=== PATIENT | male | born 1950 | race Caucasian/White ===

== ENCOUNTER → 2018-01-22 11:15 | Outpatient (CLI) | payer MEDICARE, MEDICAID, SELFPAY ==
[2018-01-22 11:43] LABS: Basophils # 0.1 K/mm3 (0-0.2); Basophils % 0.9 % (0.1-2.0); Eosinophils # 0.2 K/mm3 (0.0-0.4); Eosinophils % 4.1 % (0.1-12.0); Hematocrit 49.8 % (42.0-52.0); Hemoglobin 16.4 g/dL (14.1-18.0); Lymphocytes # 2.3 K/mm3 (0.7-4.5); Lymphocytes % 38.5 K/mm3 (10-50); Mean Corpuscular Hemoglobin 31.5 pg (27.0-31.2); Mean Corpuscular Volume 95.4 fl (80-94); Mean Platelet Volume 6.9 fl (7.4-10.4); Monocytes # 0.5 K/mm3 (0.1-1.0); Monocytes % 8.5 % (1.7-9.3); Neutrophils # 2.8 K/mm3 (1.8-7.8); Platelet Count 304 K/mm3 (142-424); Red Blood Count 5.22 M/mm3 (4.60-6.20); Red Cell Distribution Width 14.3 % (11.5-17.5); White Blood Count 5.9 K/mm3 (4.8-10.8)
[2018-01-24 22:08] LABS: Blastomyces Antibody Negative (Neg:<1:1)
[2018-01-25 18:36] LABS: Histoplasma Antibody Quant Negative (Neg:<1:1)
== END ==
PROVIDERS: Visit Provider Internal Medicine
DX: R61 Generalized hyperhidrosis (principal); R06.02 Shortness of breath
CPT/HCPCS: 36415; 85025; 86480; 86612; 86698

== ENCOUNTER → 2018-02-26 09:46 | Outpatient (CLI) | payer MEDICARE, MEDICAID, SELFPAY | PROVIDERS: Visit Provider Internal Medicine | DX: R76.12 Nonspecific reaction to cell mediated immunity measurement of gamma interferon antigen response without active tuberculosis (principal) | CPT/HCPCS: 87116; 87206 ==

== ENCOUNTER → 2018-02-27 16:00 | Outpatient (CLI) | payer MEDICARE, MEDICAID, SELFPAY | PROVIDERS: Visit Provider Internal Medicine | DX: R76.12 Nonspecific reaction to cell mediated immunity measurement of gamma interferon antigen response without active tuberculosis (principal) | CPT/HCPCS: 87116; 87206 ==

== ENCOUNTER → 2018-02-28 14:23 | Outpatient (CLI) | payer MEDICARE, MEDICAID, SELFPAY | PROVIDERS: Visit Provider Internal Medicine | DX: R76.12 Nonspecific reaction to cell mediated immunity measurement of gamma interferon antigen response without active tuberculosis (principal) | CPT/HCPCS: 87116; 87206 ==

== ENCOUNTER → 2019-07-23 10:01 | Outpatient (CLI) | payer MEDICARE, MEDICAID, SELFPAY ==
[2019-07-23 10:33] LABS: Basophils # 0.1 K/mm3 (0-0.2); Basophils % 0.8 % (0.1-2.0); Eosinophils # 0.3 K/mm3 (0.0-0.4); Eosinophils % 4.5 % (0.1-12.0); Hemoglobin 15.9 g/dL (14.1-18.0); Lymphocytes # 2.6 K/mm3 (0.7-4.5); Lymphocytes % 36.8 % (10-50); Mean Corpuscular HGB Conc 31.2 g/dL (31.8-35.4); Mean Corpuscular Hemoglobin 31.2 pg (27.0-31.2); Mean Corpuscular Volume 100.2 fl (80-94); Mean Platelet Volume 7.5 fl (7.4-10.4); Monocytes # 0.7 K/mm3 (0.1-1.0); Neutrophils # 3.4 K/mm3 (1.8-7.8); Neutrophils % 47.9 % (37.0-80.0); Platelet Count 262 K/mm3 (142-424); Red Blood Count 5.09 M/mm3 (4.60-6.20); Red Cell Distribution Width 15.2 % (11.5-17.5)
[2019-07-23 11:40] LABS: Alanine Aminotransferase 17 U/L (12-78); Albumin Level 3.8 gm/dL (3.4-5.0); Alkaline Phosphatase 69 U/L (46-116); Anion Gap 11.9 mEq/L (5-15); Aspartate Amino Transferase 9 U/L (15-37); Bilirubin,Direct 0.2 mg/dL (0.0-0.2); Bilirubin,Total 1.2 mg/dL (0.2-1.0); Blood Urea Nitrogen 11 mg/dL (7-18); Calcium 9.1 mg/dL (8.5-10.1); Carbon Dioxide 29 mmol/L (21.0-32.0); Chloride 99 mmol/L (98-107); Creatinine,Serum 0.93 mg/dL (0.70-1.30); Estimated Glomerular Filt Rate 81 ml/min (>60); GFR (African American) 98 ML/MIN (>60); Globulin 3.8 gm/dl (1.3-3.2); Glucose 101 mg/dL (74-106); Potassium 3.9 mmoL/L (3.5-5.1); Prostate Specific Ag Screen 0.5 ng/mL (0.0-4.0); Sodium 136 mmol/L (136-145); Total Protein,Serum 7.6 gm/dL (6.4-8.2)
[2019-07-23 12:22] LABS: Hemoglobin A1C 6.2 % (0.0-7.0)
== END ==
PROVIDERS: Visit Provider Family Medicine
DX: E78.49 Other hyperlipidemia (principal); Z79.891 Long term (current) use of opiate analgesic; Z12.5 Encounter for screening for malignant neoplasm of prostate
CPT/HCPCS: 36415; 80053; 80076; 83036; 85025; G0103

== ENCOUNTER → 2020-07-01 11:09 | Outpatient (CLI) | payer MEDICARE, MEDICAID, SELFPAY ==
--- NOTE | 2020-07-01 11:13 | CT_ITS ---
PROCEDURE: CT LUNG SCREENING CLINICAL INDICATION: HX OF TOBACCO USE CURRENT SMOKER 80 pack year smoking history COPD, EMPHYSEMA, CAD, CHF NO PRIOR COMPARISON: No exams were available for comparison TECHNIQUE: The exam was performed on a GE Light Speed [address] scanner using 2.90 mGy CTDI. A low dose helical CT CHEST was performed on a multi-detector scanner. All CT scans at the facility use one or more dose reduction, viz: automated exposure control, ma/kV adjustment per patient size (including targeted exams where dose is matched to indication, i.e. head), or iterative reconstruction technique. The LDCT was performed in a facility that meets the criteria for the screening program. Data regarding this exam was submitted to ACR which is an approved registry. The order for this exam indicates that it came as a result of a lung cancer screening counseling shard decision-making visit that included all the elements required of such a visit including smoking cessation. The radiologist interpreting this exam meets the CMS criteria for the LDCT lung cancer screening program. The exam is reported using the Lung-RADS classification scale and reported to the ACR registry. NOTE: This study was performed for the specific purposes of lung cancer screening and is not an alternative to diagnostic chest CT. RADIATION DOSE: CTDI vol(CT dose Index-volume) = 2.90mG DLP (Dose Length Product) = 113.59 mGcm FINDINGS: Coronary artery calcifications. Prior CABG. Mild nodularity of the adrenal gland on the left possibly adenomatous in nature. COPD with centrilobular emphysema and scattered areas of scarring. There is a ground-glass opacity in the right upper lobe at 12 mm. Reticular nodular pattern is present with evidence of old granulomatous disease. 4 mm nodule left upper lobe laterally image 33. 7 mm nodule lingula image 47. 4 mm nodule right upper lobe image 33 IMPRESSION: Lung-RADS Category 3 Probably Benign several pulmonary nodules are present including a 7 mm noncalcified nodule in the lingula. Six-month follow-up is suggested Follow-up: [address] chest without and with contrast Dictated by: Joseph Roche MD 07/10/2020 11:10 Joseph Roche MD in [place] 07/10/2020 11:10
== END ==
PROVIDERS: PCP Family Medicine; Visit Provider Internal Medicine Pulmonary Disease
DX: Z87.891 Personal history of nicotine dependence (principal)

== ENCOUNTER → 2020-11-26 11:35 | Outpatient (CLI) | payer MEDICARE, MEDICAID, SELFPAY ==
[2020-11-26 12:40] LABS: Alanine Aminotransferase 19 U/L (12-78); Albumin Level 4.5 g/dl (3.5-5.0); Albumin/Globulin Ratio 1.4 (1.1-1.8); Alkaline Phosphatase 74 U/L (38-126); Anion Gap 13.2 mEq/L (5-15); Aspartate Amino Transferase 23 U/L (17-59); Bilirubin,Total 1.5 mg/dl (0.2-1.3); Blood Urea Nitrogen 14 mg/dl (9-20); Calcium 9.9 mg/dl (8.4-10.2); Carbon Dioxide 31 mmol/L (22.0-30.0); Chloride 98 mmol/L (98-107); Chol/HDL Ratio 2.5 (1-3.5); Cholesterol 134 mg/dl (140-200); Estimated Glomerular Filt Rate 66 ml/min (>60); GFR (African American) 80 ML/MIN (>60); Globulin 3.2 g/dL (1.3-3.2); Glucose 114 mg/dl (74-100); HDL Cholesterol 54 mg/dl (40-60); Potassium 4.2 mmoL/L (3.5-5.1); Sodium 138 mmol/L (136-145); Total Protein,Serum 7.7 g/dl (6.3-8.2); Triglycerides 118 mg/dl (30-150); VLDL Cholesterol 24 mg/dL (0-40)
== END ==
PROVIDERS: Visit Provider Family Medicine
DX: E78.5 Hyperlipidemia, unspecified (principal); Z79.899 Other long term (current) drug therapy
CPT/HCPCS: 36415; 80053; 80061

== ENCOUNTER → 2020-12-19 14:51 | Outpatient (CLI) | payer MEDICARE, MEDICAID, SELFPAY ==
[2020-12-19 17:06] LABS: Alanine Aminotransferase 19 U/L (12-78); Albumin Level 4.3 g/dl (3.5-5.0); Alkaline Phosphatase 95 U/L (38-126); Aspartate Amino Transferase 23 U/L (17-59); Bilirubin,Direct 0.1 mg/dl (0.0-0.4); Bilirubin,Indirect 0.7 mg/dL (0.0-0.9); Bilirubin,Total 0.8 mg/dl (0.2-1.3); Bilirubin,Unconjugated 0.7 mg/dL (0.0-1.1); Total Protein,Serum 7.6 g/dl (6.3-8.2)
== END ==
PROVIDERS: Visit Provider Family Medicine
DX: R94.5 Abnormal results of liver function studies (principal)
CPT/HCPCS: 36415; 80076

== ENCOUNTER 2021-10-27 10:40 | Emergency (ER) | payer MEDICARE, MEDICAID, SELFPAY ==
[2021-10-27 11:40] VITALS: BP 120/82; PULSE 86; RESP 18; TEMP 36.8; O2SAT 94; BMI 34.8
--- NOTE | 2021-10-27 11:59 | HMH.EDUTC ---
[facility] Disposition Clinical Impression: Exposure to COVID-19 virus Disposition: Home, Self-Care Condition on Discharge: Good Instructions: DI for COVID-19 (Suspected or Confirmed ), Preventing the Spread of Coronavirus Discharge Instructions Additional Instructions: Drink plenty of fluids. Take tylenol or ibuprofen for pain or fever. Follow up with your regular doctor. GO TO THE ER FOR ANY WORSENING SYMPTOMS Quarantine until you know the results of your covid-19 test. If it is positive, the health department should call you and give you further instructions about your length of Quarantine and other things. Notify your school or workplace of your results and follow their instructions regarding return to work/school. Referrals: Tessa Flores [Primary Care Provider] - Time of Disposition: 12:11 Medical Decision Making - Medical Records Medical records reviewed: No: I reviewed the patient's medical records. - Matias Inquiry Pt receiving controlled substance: No Vital Signs: 10/27/21 11:40 10/27/21 12:17 Temperature 98.2 F 98.2 F Temperature Source Oral Pulse Rate 86 Pulse Rate [Right Brachial] 86 Respiratory Rate 18 18 Blood Pressure 120/82 Blood Pressure [Right Arm] 120/82 Blood Pressure Mean [Right Arm] 94 Blood Pressure Source [Right Arm] Automatic Cuff Blood Pressure Position [Right Arm] Sitting 02 Sat by Pulse Oximetry 94 L Oxygen Delivery Method Room Air [facility] HPI - General Stated complaint: soa, weakness Time Seen by Provider: 10/27/21 11:59 - History of Present Illness Provider Complaint: He states that he was exposed to covid-19 on 10/21. He has been fully vaccinated but he has a history of copd, so he wants to be tested for covid-19. He denies any symptoms at this time to me. He states that he is always a little short of breath with his history of copd, but he is no more short of breath or coughing more that his normal. - Related Data Home Medications Medication Instructions Recorded Confirmed albuterol sulfate 90 mcg/actuation INHALATION 17 Days #18 04/07/18 aerosol inhaler aspirin 81 mg tablet,delayed 81 mg PO ONCE 04/07/18 release atorvastatin 40 mg tablet PO 30 Days #30 04/07/18 budesonide-formoterol HFA 160 INHALATION 30 Days #102 06/11/18 mcg-4.5 mcg/actuation aerosol inhaler hydrocodone 7.5 mg-acetaminophen PO 30 Days #90 04/07/18 325 mg tablet isosorbide mononitrate 120 mg PO 30 Days #30 04/07/18 tablet,extended release 24 hr lisinopril 20 mg tablet PO 30 Days #60 04/07/18 metoprolol tartrate 50 mg tablet PO 30 Days #60 04/07/18 montelukast 10 mg tablet PO 30 Days #30 04/07/18 tiotropium bromide 18 mcg capsule INHALATION 30 Days #30 04/07/18 with inhalation device Previous Rx's Medication Instructions Recorded Diclofenac Sodium [Diclofenac Sod 4 gram TP QID PRN #100 gm 09/19/18 100gm Topical Gel] Allergies Allergy/AdvReac Type Severity Reaction Status Date / Time lidocaine Allergy Verified 10/27/21 12:02 procaine Allergy Verified 10/27/21 12:02 [facility] History - Hepatitis A Screen Attestation statement:: This patient has been screened for Hepatitis A risk factors. I have reviewed the patient's past medical history: Yes Medical History: Reports:: Anxiety, Chronic Obstructive Pulmonary Disease (COPD), Depression, Gastroesophageal Reflux Disease(GERD), Home Oxygen, Hyperlipidemia, Hypertension, Tuberculosis Other Surgeries: Yes: CABG, Other Comment: mass-throat, hemmorrhoid, carotid artery, leg-post trauma - Social History Smoking Status: Current every day smoker Tobacco Type: cigarettes Alcohol Intake: never Alcohol Intake Frequency:: other Substance Use Type: denies use Occupational Status: retired - Psychiatric History Pschychiatric History:: Reports:: Anxiety, Depression Family Hx:: Heart Attack ROS Obtained: Yes All systems reviewed & no additional complaints - Constitutional Co
[2021-10-27 12:17] VITALS: BP 120/82; PULSE 86; RESP 18; TEMP 36.8; O2SAT 94
== END 2021-10-27 12:23 | disposition home or self-care (01) ==
PROVIDERS: Emergency Provider Nurse Practitioner Family; PCP Family Medicine
DX: Z20.822 Contact with and (suspected) exposure to COVID-19 (principal); R06.02 Shortness of breath; J44.9 Chronic obstructive pulmonary disease, unspecified; K21.9 Gastro-esophageal reflux disease without esophagitis; E78.5 Hyperlipidemia, unspecified; I10 Essential (primary) hypertension; F17.210 Nicotine dependence, cigarettes, uncomplicated; Z79.899 Other long term (current) drug therapy
CPT/HCPCS: G0463; 99202; C9803; U0003; U0005

== ENCOUNTER 2025-09-10 07:37 | Outpatient (CLI) | payer MEDICARE, MEDICAID, SELFPAY ==
--- OUTSIDE RECORDS SUMMARY | 2025-09-10 07:38 | XMS_ITS | CCD ---
Author Organization Unknown Care Team Providers Care Merchandising Professor Name Role Phone Unavailable Primary Care Provider Unavailabl e Unavailable Chronic Care Management Unavaila ble Summary Purpose DataExchange Insurance Providers Payer name Policy type / Coverage type Covered alliance party ID Effective Begin Date Effective End Date [facility] [id number] Unknown Unknown Family History Family History data not found Medication Administered No Medication Administered data Reason For Visit No Reason For Visit data Medical Equipment No Medical Equipment data Advance Directives No Advance Directive data
--- OUTSIDE RECORDS SUMMARY | 2025-09-10 07:39 | XMS_ITS | Clinical Summary ---
[facility] Organization [facility] Address [address] [place] [address] Care Team Providers Care Principal Hardware Architect Name Role Phone Tessa Flores MD Primary Care Provider Medications albuterol sulfate HFA 108 (90 Base) MCG/ACT inhaler Inhale 2 puffs Every 4 (Four) Hours As Needed. Inhale 2 puffs by mouth every 4 to 6 hours as needed 10/23/2024 Active atorvastatin (LIPITOR) 40 MG tablet Take 1 tablet by mouth Daily. Active busPIRone (BUSPAR) 10 MG tablet Take 1 tablet by mouth Every 12 (Twelve) Hours. 10/12/2024 Active citalopram (CeleXA) 20 MG tablet Take 1 tablet by mouth Daily. 10/12/2024 Active cyclobenzaprine (FLEXERIL) 10 MG tablet Take 1 tablet by mouth. 04/27/2014 Active Trelegy Ellipta 100-62.5-25 MCG/ACT inhaler Inhale 1 puff Daily. 10/12/2024 Active isosorbide mononitrate (IMDUR) 120 MG 24 hr tablet Take 1 tablet by mouth Daily. Active lisinopril (PRINIVIL,ZESTRI L) 20 MG tablet Take 1 tablet by mouth 2 (Two) Times a Day. Active methocarbamol (ROBAXIN) 500 MG tablet Take 1 tablet by mouth Every 12 (Twelve) Hours. 10/19/2024 Active metoprolol tartrate (LOPRESSOR) 50 MG tablet Take 1 tablet by mouth 2 (Two) Times a Day. Active nitroglycerin (Nitrostat) 0.[address] under the tongue Every 5 (Five) Minutes As Needed. 06/24/2014 Active omeprazole (priLOSEC) 20 MG capsule Take 1 capsule by mouth Daily. 10/12/2024 Active tiotropium (Spiriva HandiHaler) 18 MCG per inhalation capsule Place 1 capsule into inhaler and inhale. 11/24/2013 Active Social History Tobacco Use Types Packs/Day Years Used Date Smoking Tobacco: Never Assessed Abuse Screen Answer Date Recorded Unsafe at Home or Work/School Not on file Feels Threatened by Someone? Not on file 06/2023 Does Anyone Keep You from Co ntacting Others or Doint Things Outside the Home? Not on file 08/05/2023 Physical Sign of Abuse Present Not on file 1 Housing Stability Answer Date Recorded Current Living Arrangements Not on file 06/2023 Potentially Unsafe Housing Conditions Not on spencer e 08/05/2023 Family and Community Support Answer Jovanni e Recorded Help with Day-to-Day Activities Not on file 08/05/2023 Lonely or Isolated Not on file 08/05/2023 Employment Answer Date Recorded Do you want help finding or keeping work or a franky b? Not on file 08/05/2023 Disabilities Answer Date Recorded Concentrating, Remembering, or Making Decisions Difficulty Not on file 08/05/2023 Doing Errands Independently Difficulty Not on fi le 08/05/2023 Education Answer Date Recorded Help with school or training? Not on file Preferred Language Not on file 08/05/2023 Sex and Gender Information Value Date Recorded Sex Assigned at Not on file Legal Sex Male 12:48 PM EDT Gender Identity Not on file Sexual Orientation Not on file Last Filed Vital Signs Vital Sign Reading Time Taken Comments Blood Pressure 151/97 07/02/2014 11:13 AM EDT Pulse 84 07/02/2014 11:10 AM EDT Temperature 36.7 C (98 F) 07/02/2014 11:10 AM EDT Respiratory Rate - - Oxygen Saturation 94% 07/02/2014 11:10 AM EDT Inhaled Oxygen Concentration - - Weight 109 kg (241 lb 0.1 oz) 07/02/2014 11:10 A M EDT Height 185.4 cm (6' 1 ) 07/02/2014 11:19 AM EDT Body Mass Index 31.8 07/02/2014 11:10 AM EDT Plan of Treatment Health Maintenance Due Date Last Done Comments COLOGUARD 1996 COLON CANCER SCREENING 5 YEAR SIGMOIDOSCOPY 1996 COLONOSCOPY 1996 [address] CANCER SCREENING 1996 CT COLONOGRAPHY 1996 FECAL OCCULT BLOOD TEST 1996 FIT Testing (1 year) 1996 Pneumococcal Vaccine 50+ (1 of 1 - PCV) 2001 ZOSTER VACCINE (1 of 2) 2001 AAA SCREEN ONCE 2016 ANNUAL PHYSICAL 02/18/2018 HEPATITIS C SCREENING 02/18/2018 INFLUENZA VACCINE 05/28/2025 COVID-19 Vaccine ( - season) 2025 TDAP/TD VACCINES (2 - Td or Tdap) 04/05/[address] [place] [address] MEDICARE ADVANTAGE [place]ICAID [place] Care Teams Principal Hardware Architect Relationship Specialty Start Date End Date Tessa Flores MD [address] [address] PCP - General Family Medicine 08/05/24
--- OUTSIDE RECORDS SUMMARY | 2025-09-10 07:39 | XMS_ITS | Clinical Summary ---
Author Organization Healthcare Address [address] [place] [address] Care Team Providers Care Safety Deposit Boxes Custodian Name Role Phone Tessa Flores MD Primary Care Provider [phone] Immunizations Immunization Administration Dates Next Due Tdap 04/05/2017 Social History Tobacco Use Types Packs/Day Years Used Date Smoking Tobacco: Every Day Alcohol Use Standard Drinks/Week Comments Yes 0 (1 standard drink = 0.6 oz pur e alcohol) Sex and Gender Information Value Date Recorded Sex Assigned at Not on file Legal Sex Male 6:28 PM EDT Gender Identity Not on file Sexual Orientation Not on file Last Filed Vital Signs Vital Sign Reading Time Taken Comments Blood Pressure - - Pulse - - Temperature - - Respiratory Rate - - Oxygen Saturation - - Inhaled Oxygen Concentration - - Weight 110 kg (242 lb) 08/05/2017 8:08 AM EDT Height 185.4 cm (6' 1 ) 08/05/2017 8:08 AM EDT Body Mass Index 31.93 08/05/2017 8:08 AM EDT Plan of Treatment Not on file Care Teams Safety Deposit Boxes Custodian Relationship Specialty Start Date End Date Tessa Flores MD [address] [facility] [address] [place] [address] PCP - General 03/10/21
[2025-09-10] MEDS: ALBUTEROL 0.083% 2.5 MG/3 ML NEB IH (08:47)
--- NOTE | 2025-09-10 09:30 | CT_ITS ---
FINAL REPORT CLINICAL HISTORY: lung cancer screening, smokes 1 pack per day x 50 yrs, COPD, emphysema, CAD, CHF. Exposed to asbestosis COMPARISON: 07/01/2020 FINDINGS: CT CHEST LOW DOSE SCREENING HISTORY: Screening exam for lung cancer. 75-year-old male, current smoker, 10-uzea-pcrb history DOSE: CTDI vol: 2.90 mGy, DLP: 125.07 mGy*cm TECHNIQUE: Axial CT without IV contrast administration using low dose protocol. This study was performed with techniques to keep radiation doses as low as reasonably achievable, (ALARA). Individualized dose reduction techniques using automated exposure control or adjustment of mA and/or kV according to the patient's size were employed. No acute lung disease is present. There is an irregular ground glass opacity in the posterior right upper lobe measuring 8 mm in size, stable when compared to the prior exam. There is a 4 mm lateral left upper lobe nodule best seen on image #41 of series 4, stable. There is a 7 mm lingular nodule best seen on image #55 of series 4, stable. No new nodules are identified. Changes of emphysema are again noted. There is scarring in the left lung. No pleural or pericardial effusion is seen. No adenopathy or mass lesion is present. Note is once again made of severe coronary artery calcifications. IMPRESSION: Stable nodules when compared to the prior LDCT of 2019. LUNG RADS CATEGORY 2 RECOMMENDATION: 12 month LDCT follow up Reviewed, Interpreted and Dictated by Donald Mckee MD Transcribed by Tali Vasquez Authenticated and [facility]
== END 2025-09-10 23:59 | disposition home or self-care (01) ==
LOC: RT 07:37
PROVIDERS: PCP Family Medicine; Visit Provider Internal Medicine Pulmonary Disease
DX: R91.8 Other nonspecific abnormal finding of lung field (principal); J44.9 Chronic obstructive pulmonary disease, unspecified; J43.9 Emphysema, unspecified; I25.10 Atherosclerotic heart disease of native coronary artery without angina pectoris; I50.9 Heart failure, unspecified; F17.210 Nicotine dependence, cigarettes, uncomplicated; Z12.2 Encounter for screening for malignant neoplasm of respiratory organs
CPT/HCPCS: 71271; 94060; 94618; 94726; 94729